=== PATIENT | female | born 1965 | race Caucasian/White ===

== ENCOUNTER 2025-01-26 12:55 | Inpatient (IN) ==
[2025-01-26 13:06] VITALS: BMI 46.7
[2025-01-26] MEDS: ZOFRAN INJ 4 MG VIAL IVP ONE ×2 (14:09→19:24)
[2025-01-26] MEDS: NS 1,000 ML IV 1,000 ML IV ONE (14:10)
[2025-01-26] MEDS: OFIRMEV IV 1000 MG VIAL 1,000 MG/100 ML VIAL IV PRN (14:11)
--- NOTE | 2025-01-26 15:02 | ED.ABDFE ---
HPI Time Seen Time Seen by Provider: 01/26/25 14:45 PCP Primary Care Physician: Dr. Crow Complaint Chief Complaint:: Patient states that starting Sunday night she started having left sided lower back pain that went into her left lower abdomen. She states that yesterday she started throwing up and states that she has ran a fever of 103.6. COVID-19 Coronavirus risk:travel/contact w/high risk person: Yes Has patient experienced Coronavirus symptoms: Yes Coronavirus symptoms experienced: Fever Source History Provided: Patient Mode of arrival Mode of Arrival: Ambulatory Timing Onset of Chief Complaint: 01/23/25 PMH PMH Past Medical History: Yes Past Medical History: GERD and Hypothyroidism Past Surgical History: Yes Surgical History: , Cholecystectomy, Ortho Surgery and Other Past Surgical History Comment: Elbow, foot, x2 carpel tunnel Family History History of Family Medical Conditions: Yes Family Medical History: Diabetes Mellitus, [place], Coronary Artery Disease and Hypertension Social History Does patient currently use any type of tobacco product: No Have you used tobacco products in the last 12 months: No Type of Tobacco Use: None Does any household member use tobacco: No Alcohol Use: None Do you use any recreational Drugs:: No Lives With: Family Lives Where: Home Travel Risk Coronavirus risk:travel/contact w/high risk person: Yes Has patient experienced Coronavirus symptoms: Yes Coronavirus symptoms experienced: Fever Infectious screening In the last 2 months have you had wt loss of >10#?: NO Have you had fever, night sweats or hemotysis?: No Have you traveled outside the country in the last 6 months?: No Isolation: Droplet PE Vital Signs Vitals: Vital Signs Temperature 99.8 F Temperature 102.9 F Temperature 99.6 F Pulse Rate 80 Pulse Rate 79 Pulse Rate 78 Pulse Rate 79 Pulse Rate 80 Pulse Rate 78 Pulse Rate 79 Pulse Rate 81 Pulse Rate 79 Pulse Rate 81 Pulse Rate 83 Pulse Rate 83 Pulse Rate 87 Pulse Rate 92 Pulse Rate 92 Pulse Rate 94 Pulse Rate 101 Pulse Rate 104 Pulse Rate 105 Pulse Rate 112 Pulse Rate 113 Pulse Rate 114 Respiratory Rate 20 Respiratory Rate 20 Respiratory Rate 18 Respiratory Rate 19 Respiratory Rate 19 Respiratory Rate 18 Respiratory Rate 18 Respiratory Rate 19 Respiratory Rate 19 Respiratory Rate 19 Respiratory Rate 21 Respiratory Rate 21 Respiratory Rate 24 Respiratory Rate 16 Respiratory Rate 23 Respiratory Rate 26 Respiratory Rate 28 Respiratory Rate 18 Respiratory Rate 27 Respiratory Rate 22 Respiratory Rate 24 Respiratory Rate 18 Blood Pressure 126/83 Blood Pressure 120/78 Blood Pressure 126/76 Blood Pressure 126/76 Blood Pressure 99/70 Blood Pressure 104/77 Blood Pressure 112/62 Blood Pressure 114/60 Blood Pressure 112/64 Blood Pressure 122/71 Blood Pressure 137/75 Blood Pressure 134/82 O2 Sat by Pulse Oximetry 98 O2 Sat by Pulse Oximetry 96 O2 Sat by Pulse Oximetry 93 O2 Sat by Pulse Oximetry 93 O2 Sat by Pulse Oximetry 93 O2 Sat by Pulse Oximetry 95 O2 Sat by Pulse Oximetry 93 O2 Sat by Pulse Oximetry 97 O2 Sat by Pulse Oximetry 96 O2 Sat by Pulse Oximetry 97 O2 Sat by Pulse Oximetry 97 O2 Sat by Pulse Oximetry 97 O2 Sat by Pulse Oximetry 96 O2 Sat by Pulse Oximetry 96 O2 Sat by Pulse Oximetry 95 O2 Sat by Pulse Oximetry 93 O2 Sat by Pulse Oximetry 93 O2 Sat by Pulse Oximetry 95 O2 Sat by Pulse Oximetry 94 O2 Sat by Pulse Oximetry 95 O2 Sat by Pulse Oximetry 95 ROR Labs Reviewed 01/26/25 13:58 01/26/25 13:58 Laboratory: WBC 7.5 X10^3/uL (3.6-10.0) 01/26/25 13:58 RBC 4.17 X10^6/uL (3.5-5.4) 01/26/25 13:58 Hgb 14.3 g/dL (12.0-16.0) 01/26/25 13:58 Hct 41.2 % (36.0-47.0) 01/26/25 13:58 MCV 98.7 fL (80.0-100.0) 01/26/25 13:58 MCH 34.2 pg (27.0-34.0) H 01/26/25 13:58 MCHC 34.6 g/dL (33.0-35.0) 01/26/25 13:58 RDW 14.3 % (11.6-16.5) 01/26/25 13:58 Plt Count 216 X10^3/uL (150.0-450.0) 01/26/25 13:58 MPV 8.1 fL (7.4-11.0) 01/26/25 13:58 Neut % (Auto) 73.8 % (42.0-75.0) 01/26/25 13:58 Lymph % (Auto) 16.5 % (21.0-51.0) L 01/26/25 13:58 [place] % (Auto) 8.6 % (0.0-13.0) 01/26/25 13:58 Eos % (Auto) 0.1 % (0.9-2.9) L 01/26/25 13:58 Baso % (Auto) 1.0 % (0.2-1.0) 01/26/25 13:58 Neut # (Auto) 5.5 x10^3/uL (2.2-4.8) H 01/26/25 13:58 Lymph # (Auto) 1.2 X10^3/uL (1.3-2.9) L 01/26/25 13:58 [place] # (Auto) 0.6 x10^3/uL (0.3-0.8) 01/26/25 13:58 Eos # (Auto) 0.0 x10^3/uL (0.0-0.2) 01/26/25 13:58 Baso # (Auto) 0.1 X10^3/uL (0.0-0.1) 01/26/25 13:58 Absolute Nucleated RBC 0.2 /100WBC 01/26/25 13:58 Sodium 135 mmol/L (136-145) L 01/26/25 13:58 Corrected Sodium TNP 01/26/25 13:58 Potassium 3.8 mmol/L (3.5-5.1) 01/26/25 13:58 Chloride 98 mmol/L (98-107) 01/26/25 13:58 Carbon Dioxide 26.6 mmol/L (21-32) 01/26/25 13:58 BUN 12 mg/dL (7-18) 01/26/25 13:58 Creatinine 1.15 mg/dL (0.55-1.02) H 01/26/25 13:58 Est GFR (MDRD) Af Amer > 60 (>60) 01/26/25 13:58 Est GFR (MDRD) Non-Af 52 (>60) L 01/26/25 13:58 Glucose 101 mg/dL (65-99) H 01/26/25 13:58 Lactic Acid 0.4 mmol/L (0.4-2.0) 01/26/25 16:48 Calcium 9.4 mg/dL (8.5-10.1) 01/26/25 13:58 Corrected Calcium 10.0 mg/dL (8.5-10.1) 01/26/25 13:58 Total Bilirubin 0.60 mg/dL (0.2-1.0) 01/26/25 13:58 AST 20 Units/L (15-37) 01/26/25 13:58 ALT 19 Units/L (12-78) 01/26/25 13:58 Alkaline Phosphatase 77 Units/L (46-116) 01/26/25 13:58 Total Protein 7.9 g/dL (6.4-8.2) 01/26/25 13:58 Albumin 3.2 g/dL (3.4-5.0) L 01/26/25 13:58 Globulin 4.7 g/dL (2.5-4.5) H 01/26/25 13:58 Albumin/Globulin Ratio 0.7 Ratio (1.1-2.1) L 01/26/25 13:58 Specimen Type Clean catch urine 01/26/25 15:06 Urine Color Yellow (YELLOW) 01/26/25 15:06 Urine Appearance Cloudy (CLEAR) 01/26/25 15:06 Urine pH 6.0 (5.0 - 8.0) 01/26/25 15:06 Ur Specific [place] 1.015 (1.000-1.030) 01/26/25 15:06 Urine Protein 3+ (NEGATIVE) 01/26/25 15:06 Urine Glucose (UA) Negative (NEGATIVE) 01/26/25 15:06 Urine Ketones 2+ (NEGATIVE) 01/26/25 15:06 Urine Blood 4+ (NEGATIVE) 01/26/25 15:06 Urine Nitrite Positive (NEGATIVE) 01/26/25 15:06 Urine Bilirubin Negative (NEGATIVE) 01/26/25 15:06 Urine Urobilinogen Normal (NORMAL) 01/26/25 15:06 Ur Leukocyte Esterase 3+ (NEGATIVE) 01/26/25 15:06 Urine RBC Tntc /HPF (0-3) A 01/26/25 15:06 Urine WBC Tntc /HPF (0-5) A 01/26/25 15:06 Ur Squamous Epith Cells Rare /HPF (NEGATIVE) 01/26/25 15:06 Urine Bacteria 2+ /HPF (NEGATIVE) 01/26/25 15:06 Ur Culture Indicated? Yes/culture set up 01/26/25 15:06 SARS-CoV-2 (PCR) Negative (NEGATIVE) 01/26/25 15:05 Influenza Type A (PCR) Negative (NEGATIVE) 01/26/25 15:05 Influenza Type B (PCR) Negative (NEGATIVE) 01/26/25 15:05 RSV (PCR) Negative (NEGATIVE) 01/26/25 15:05 Opioid Opioid Risk Tool Age (Bc box if 16-45): No History of Preadolescent Sexual Abuse: No Total: 0 Total Score Risk Category: Low Risk Copyright: Luisito JACOSB predicting aberrant behaviors Discharge Plan Diagnosis Discharge Problem: Acute pyelonephritis, Lower back pain, Kidney stones Discharge Plan Patient Disposition: 09 ADMITTED INPATIENT Condition: Stable Orders to Discharge Patient Discharge Orders: Transfer (Routine); Ordered 01/26/25 Ordered By: KARLA FABIAN
[2025-01-26 15:33] LABS: BASOPHILS # (AUTO) 0.1 X10^3/uL (0.0-0.1); EOSINOPHILS % (AUTO) 0.1 % (0.9-2.9); HEMATOCRIT 41.2 % (36.0-47.0); HEMOGLOBIN 14.3 g/dL (12.0-16.0); LYMPHOCYTES # (AUTO) 1.2 X10^3/uL (1.3-2.9); LYMPHOCYTES % (AUTO) 16.5 % (21.0-51.0); MEAN CORPUSCULAR HEMOGLOBIN 34.2 pg (27.0-34.0); MEAN CORPUSCULAR HGB CONC 34.6 g/dL (33.0-35.0); MEAN CORPUSCULAR VOLUME 98.7 fL (80.0-100.0); MEAN PLATELET VOLUME 8.1 fL (7.4-11.0); MONOCYTES # (AUTO) 0.6 x10^3/uL (0.3-0.8); MONOCYTES % (AUTO) 8.6 % (0.0-13.0); NEUTROPHILS # (AUTO) 5.5 x10^3/uL (2.2-4.8); NEUTROPHILS % (AUTO) 73.8 % (42.0-75.0); PLATELET COUNT 216 X10^3/uL (150.0-450.0); RED BLOOD COUNT 4.17 X10^6/uL (3.5-5.4); RED CELL DISTRIBUTION WIDTH 14.3 % (11.6-16.5); WHITE BLOOD COUNT 7.5 X10^3/uL (3.6-10.0)
[2025-01-26 15:47] LABS: BILIRUBIN,URINE NEGATIVE (NEGATIVE); BLOOD/HEMOGLOBIN,URINE 4+ (NEGATIVE); GLUCOSE, URINE NEGATIVE (NEGATIVE); KETONES,URINE 2+ (NEGATIVE); LEUKOCYTE ESTERASE ,URINE 3+ (NEGATIVE); NITRITES,URINE POSITIVE (NEGATIVE); PROTEIN,URINE 3+ (NEGATIVE); UROBILINOGEN,URINE NORMAL (NORMAL)
[2025-01-26 15:49] LABS: ALANINE AMINOTRANSFERASE 19 Units/L (12-78); ALBUMIN 3.2 g/dL (3.4-5.0); ALKALINE PHOSPHATASE 77 Units/L (46-116); ASPARTATE AMINO TRANSFERASE 20 Units/L (15-37); BLOOD UREA NITROGEN 12 mg/dL (7-18); CALCIUM 9.4 mg/dL (8.5-10.1); CARBON DIOXIDE 26.6 mmol/L (21-32); CHLORIDE 98 mmol/L (98-107); CREATININE 1.15 mg/dL (0.55-1.02); GLUCOSE 101 mg/dL (65-99); POTASSIUM 3.8 mmol/L (3.5-5.1); SODIUM 135 mmol/L (136-145); TOTAL PROTEIN 7.9 g/dL (6.4-8.2); eGFR NON BLACK RACES 52 (>60)
[2025-01-26 15:49] LABS: APPEARANCE,URINE CLOUDY (CLEAR); COLOR,URINE YELLOW (YELLOW)
[2025-01-26 15:54] LABS: BACTERIA,URINE 2+ /HPF (NEGATIVE); RBC,URINE TNTC /HPF (0-3); SQUAMOUS EPITHELIAL CELL,UR RARE /HPF (NEGATIVE)
[2025-01-26] MEDS: ROCEPHIN VIAL 1 GRAM IV ONE (16:31)
--- NOTE | 2025-01-26 16:51 | CT ---
EXAM:CT ABDOMEN AND PELVIS WITHOUT CONTRASTHISTORY:ABD PAIN, FEVER; C-SECT, GB, ORTHOCOMPARISON:None.TECHNIQUE:Axial CT images were obtained through the abdomen and pelvis without contrast. Coronal reformatted images were included.All CT scans at this facility use dose modulation, iterative reconstruction, and/or weight based dosing when appropriate to reduce radiation dose to as low as reasonably achievable.FINDINGS:Please note that without the use of intravenous contrast, evaluation of organ parenchyma is limited.LOWER THORAX: Small hiatal hernia. Lung bases are clear.ABDOMEN:LIVER: NormalGALLBLADDER: Surgically absent.SPLEEN: NormalPANCREAS: NormalKIDNEYS: Mild bilateral pelviectasis. Left perinephric fat stranding is noted. Thickening of the left renal pelvis and proximal ureter urothelium noted. Findings raise suspicion for possible recently passed left renal stone or urinary tract infection. Urinary bladder wall thickening suggests possible cystitis.ADRENAL GLANDS: NormalGI TRACT: Colonic diverticulosis without evidence of diverticulitis. Normal appendix. Postop changes of gastric sleeve surgery.LYMPH NODES: No enlarged nodesVESSELS: NormalPERITONEUM / RETROPERITONEUM: No free gasPELVIS:BLADDER: Bladder wall thickening suggests possible cystitis.GENITALS: NormalBONES: Degenerative changes noted within the lumbar spine. No suspicious lytic or blastic lesions.IMPRESSION:Left renal pelvis and proximal ureteral urothelial thickening noted. Left perinephric fat stranding. Urinary bladder wall thickening. Findings suggests possible recently passed stone or urinary tract infection with possible pyelonephritis. Correlation recommended.Small hiatal hernia.Postoperative changes of gastric sleeve surgery.THIS IS AN ELECTRONICALLY VERIFIED FINAL REPORT01/26/2025 4:47 PM - Electronically signed by Colin Cabrera MD
[2025-01-26] MEDS: MORPHINE SULFATE INJ 4 MG IVP ONE (19:23)
[2025-01-26] MEDS ORDERED: APIXABAN 2.5 MG PO SCH (21:14)
[2025-01-26] MEDS: NS 1,000 ML IV 1,000 ML IV SCH (22:49)
[2025-01-26] MEDS: ELIQUIS PO SCH (22:49)
[2025-01-26] MEDS: PROTONIX INJ 40 MG VIAL IVP SCH (22:49)
[2025-01-27] MEDS: TYLENOL 500 MG TAB EXTRA STRENGTH PO PRN (00:34)
[2025-01-27 05:22] LABS: BASOPHILS # (AUTO) 0.1 X10^3/uL (0.0-0.1); BASOPHILS % (AUTO) 0.9 % (0.2-1.0); EOSINOPHILS % (AUTO) 0.1 % (0.9-2.9); HEMATOCRIT 33.7 % (36.0-47.0); HEMOGLOBIN 11.6 g/dL (12.0-16.0); LYMPHOCYTES % (AUTO) 14.7 % (21.0-51.0); MEAN CORPUSCULAR HEMOGLOBIN 33.9 pg (27.0-34.0); MEAN CORPUSCULAR HGB CONC 34.6 g/dL (33.0-35.0); MEAN CORPUSCULAR VOLUME 98.2 fL (80.0-100.0); MEAN PLATELET VOLUME 7.7 fL (7.4-11.0); MONOCYTES # (AUTO) 0.8 x10^3/uL (0.3-0.8); MONOCYTES % (AUTO) 11.6 % (0.0-13.0); NEUTROPHILS # (AUTO) 4.9 x10^3/uL (2.2-4.8); NEUTROPHILS % (AUTO) 72.7 % (42.0-75.0); PLATELET COUNT 199 X10^3/uL (150.0-450.0); RED BLOOD COUNT 3.43 X10^6/uL (3.5-5.4); RED CELL DISTRIBUTION WIDTH 14.3 % (11.6-16.5); WHITE BLOOD COUNT 6.7 X10^3/uL (3.6-10.0)
[2025-01-27 05:34] LABS: ALANINE AMINOTRANSFERASE 14 Units/L (12-78); ALBUMIN 2.4 g/dL (3.4-5.0); ALKALINE PHOSPHATASE 59 Units/L (46-116); ASPARTATE AMINO TRANSFERASE 16 Units/L (15-37); BLOOD UREA NITROGEN 12 mg/dL (7-18); CALCIUM 8.5 mg/dL (8.5-10.1); CARBON DIOXIDE 25.5 mmol/L (21-32); CHLORIDE 101 mmol/L (98-107); COR CA(FOR HYPOALB) 9.8 mg/dL (8.5-10.1); CREATININE 0.96 mg/dL (0.55-1.02); GLUCOSE 89 mg/dL (65-99); POTASSIUM 3.5 mmol/L (3.5-5.1); SODIUM 137 mmol/L (136-145); TOTAL PROTEIN 6.4 g/dL (6.4-8.2); eGFR NON BLACK RACES > 60 (>60)
[2025-01-27] MEDS ORDERED: CONSULT PHARMACY - POTASSIUM & MAGNESIUM XX SCH (08:00)
[2025-01-27] MEDS ORDERED: ROCEPHIN VIAL 1 GRAM ONE (08:12)
[2025-01-27] MEDS ORDERED: ELIQUIS ONE (08:12)
[2025-01-27] MEDS ORDERED: MILK OF MAGNESIA ONE (08:12)
[2025-01-27] MEDS ORDERED: NS 100 ML IV 100 ML ONE (08:13)
[2025-01-27] MEDS: K-DUR TAB 20 MEQ PO SCH (08:33)
[2025-01-27] MEDS: VISBIOME PROBIOTIC CAP 112.5 B or equivalent PO SCH (08:33)
[2025-01-27] MEDS: ROCEPHIN VIAL 1 GRAM 1 G in NS 100 ML IV 100 ML IV SCH (08:34)
[2025-01-27] MEDS: MILK OF MAGNESIA PO SCH (08:34)
[2025-01-27] MEDS: ZOFRAN INJ 4 MG VIAL IVP PRN (08:56)
[2025-01-27] MEDS ORDERED: PATIENT'S HOME MEDICATION (Omeprazole 40 mg capsule,delayed release(DR/EC)) PO SCH (09:00)
[2025-01-27] MEDS: NORCO 5/325 MG TAB PO PRN (09:39)
--- NOTE | 2025-01-27 11:07 | VAS ---
EXAM:LOWER EXT VENOUS, BILATERALHISTORY:possible blood clots; MALATHI LEG PAIN, PREVIOUS DVTCOMPARISON:None available.TECHNIQUE:Multiple whiting scale and color flow Doppler images of the deep venous system were obtained of the right and left lower extremity.FINDINGS:The deep venous system of the right and left lower extremities were evaluated from the level of the common femoral vein through the popliteal vein. Normal color flow and augmentation can be observed. In addition, normal compression is seen throughout the deep venous system.IMPRESSION:Negative for DVT.THIS IS AN ELECTRONICALLY VERIFIED FINAL REPORT01/27/2025 11:04 AM - Electronically signed by Oswald Damian MD
[2025-01-27] MEDS: MORPHINE SULFATE INJ 4 MG IVP PRN (12:30)
--- NOTE | 2025-01-27 15:37 | DR.H&P ---
H&P History & Physical for Day of: H&P Date: 01/26/25 Chief Complaint Chief Complaint: ABDOMINAL PAIN, FEVER History of Present Illness History of Present Illness: Patient states that starting Sunday night she started having left sided lower back pain that went into her left lower abdomen. She states that yesterday she started throwing up and states that she has ran a fever of 103.6. Pt has ct of abd/pelvis in ER. Pt report she had left knee surgery over a year ago and was dx with left lower leg dvt post op and has been on eliquis since. Pt is under the care of [facility] in [place]. Pt admitted for evaluation and treatment of acute illness Past Medical History Past Medical History: GERD and Hypothyroidism Past Surgical History Surgical History: , Cholecystectomy and Ortho Surgery Family History Family Medical History: Diabetes Mellitus, [place], Coronary Artery Disease, Heart Failure, Sudden Cardiac and Hypertension Social History Does patient currently use any type of tobacco product: No Have you used tobacco products in the last 12 months: No Type of Tobacco Use: None Does any household member use tobacco: No Alcohol Use: None Drug Use: None Medications Home Medications: Home Medications Medication Instructions Recorded Confirmed Type apixaban 2.5 mg tablet (Eliquis) 2.5 mg PO BID 12/19/24 01/26/25 History cyanocobalamin (vitamin B-12) 1,000 mcg IM QMONTH 12/19/24 01/26/25 History 1,000 mcg/mL injection solution omeprazole 40 mg capsule,delayed 40 mg PO DAILY 12/19/24 01/26/25 History release oxycodone-acetaminophen 5 mg-325 1 tab PO TID 12/19/24 01/26/25 History mg tablet Allergies Allergies Allergy/AdvReac Type Severity Reaction Status Date / Time albuterol [From DuoNeb] Allergy Verified 01/26/25 13:52 diphenhydramine Allergy Verified 01/26/25 13:52 [From Benadryl] ipratropium [From DuoNeb] Allergy Verified 01/26/25 13:52 Labs 01/27/25 04:45 01/27/25 04:45 Labs: 01/26/25 15:06 Urine,Clean Catch Urine Culture - Preliminary 01/26/25 15:36 Blood Blood Culture Gram Stain - Final Laboratory WBC 6.7 X10^3/uL (3.6-10.0) 01/27/25 04:45 RBC 3.43 X10^6/uL (3.5-5.4) L 01/27/25 04:45 Hgb 11.6 g/dL (12.0-16.0) L D 01/27/25 04:45 Hct 33.7 % (36.0-47.0) L 01/27/25 04:45 MCV 98.2 fL (80.0-100.0) 01/27/25 04:45 MCH 33.9 pg (27.0-34.0) 01/27/25 04:45 MCHC 34.6 g/dL (33.0-35.0) 01/27/25 04:45 RDW 14.3 % (11.6-16.5) 01/27/25 04:45 Plt Count 199 X10^3/uL (150.0-450.0) 01/27/25 04:45 MPV 7.7 fL (7.4-11.0) 01/27/25 04:45 Neut % (Auto) 72.7 % (42.0-75.0) 01/27/25 04:45 Lymph % (Auto) 14.7 % (21.0-51.0) L 01/27/25 04:45 [place] % (Auto) 11.6 % (0.0-13.0) 01/27/25 04:45 Eos % (Auto) 0.1 % (0.9-2.9) L 01/27/25 04:45 Baso % (Auto) 0.9 % (0.2-1.0) 01/27/25 04:45 Neut # (Auto) 4.9 x10^3/uL (2.2-4.8) H 01/27/25 04:45 Lymph # (Auto) 1.0 X10^3/uL (1.3-2.9) L 01/27/25 04:45 [place] # (Auto) 0.8 x10^3/uL (0.3-0.8) 01/27/25 04:45 Eos # (Auto) 0.0 x10^3/uL (0.0-0.2) 01/27/25 04:45 Baso # (Auto) 0.1 X10^3/uL (0.0-0.1) 01/27/25 04:45 Absolute Nucleated RBC 0.1 /100WBC 01/27/25 04:45 Sodium 137 mmol/L (136-145) 01/27/25 04:45 Corrected Sodium TNP 01/27/25 04:45 Potassium 3.5 mmol/L (3.5-5.1) 01/27/25 04:45 Chloride 101 mmol/L (98-107) 01/27/25 04:45 Carbon Dioxide 25.5 mmol/L (21-32) 01/27/25 04:45 BUN 12 mg/dL (7-18) 01/27/25 04:45 Creatinine 0.96 mg/dL (0.55-1.02) 01/27/25 04:45 Est GFR (MDRD) Af Amer > 60 (>60) 01/27/25 04:45 Est GFR (MDRD) Non-Af > 60 (>60) 01/27/25 04:45 Glucose 89 mg/dL (65-99) 01/27/25 04:45 Lactic Acid 0.4 mmol/L (0.4-2.0) 01/26/25 16:48 Calcium 8.5 mg/dL (8.5-10.1) 01/27/25 04:45 Corrected Calcium 9.8 mg/dL (8.5-10.1) 01/27/25 04:45 Total Bilirubin 0.40 mg/dL (0.2-1.0) 01/27/25 04:45 AST 16 Units/L (15-37) 01/27/25 04:45 ALT 14 Units/L (12-78) 01/27/25 04:45 Alkaline Phosphatase 59 Units/L (46-116) 01/27/25 04:45 Total Protein 6.4 g/dL (6.4-8.2) 01/27/25 04:45 Albumin 2.4 g/dL (3.4-5.0) L 01/27/25 04:45 Globulin 4.0 g/dL (2.5-4.5) 01/27/25 04:45 Albumin/Globulin Ratio 0.6 Ratio (1.1-2.1) L 01/27/25 04:45 Specimen Type Clean catch urine 01/26/25 15:06 Urine Color Yellow (YELLOW) 01/26/25 15:06 Urine Appearance Cloudy (CLEAR) 01/26/25 15:06 Urine pH 6.0 (5.0 - 8.0) 01/26/25 15:06 Ur Specific [place] 1.015 (1.000-1.030) 01/26/25 15:06 Urine Protein 3+ (NEGATIVE) 01/26/25 15:06 Urine Glucose (UA) Negative (NEGATIVE) 01/26/25 15:06 Urine Ketones 2+ (NEGATIVE) 01/26/25 15:06 Urine Blood 4+ (NEGATIVE) 01/26/25 15:06 Urine Nitrite Positive (NEGATIVE) 01/26/25 15:06 Urine Bilirubin Negative (NEGATIVE) 01/26/25 15:06 Urine Urobilinogen Normal (NORMAL) 01/26/25 15:06 Ur Leukocyte Esterase 3+ (NEGATIVE) 01/26/25 15:06 Urine RBC Tntc /HPF (0-3) A 01/26/25 15:06 Urine WBC Tntc /HPF (0-5) A 01/26/25 15:06 Ur Squamous Epith Cells Rare /HPF (NEGATIVE) 01/26/25 15:06 Urine Bacteria 2+ /HPF (NEGATIVE) 01/26/25 15:06 Ur Culture Indicated? Yes/culture set up 01/26/25 15:06 SARS-CoV-2 (PCR) Negative (NEGATIVE) 01/26/25 15:05 Influenza Type A (PCR) Negative (NEGATIVE) 01/26/25 15:05 Influenza Type B (PCR) Negative (NEGATIVE) 01/26/25 15:05 RSV (PCR) Negative (NEGATIVE) 01/26/25 15:05 Review of Systems Constitutional: Fever, Chills and Weakness Eyes: No Symptoms Reported ENT: No Symptoms Reported Respiratory: No Symptoms Reported Cardiovascular: Palpitations Gastrointestinal: Abdominal Pain Genitourinary: Dysuria and Hematuria Musculoskeletal: Back Pain Skin: No Symptoms Reported Neurological: No Symptoms Reported Physical Exam Vital Signs: Vital Signs Temperature 98.7 F Temperature 98.7 F Pulse Rate [Right Brachial] 82 Pulse Rate [Right Brachial] 96 Respiratory Rate 20 Respiratory Rate 20 Respiratory Rate 20 Respiratory Rate 21 Respiratory Rate 21 Respiratory Rate 21 Blood Pressure [Right Arm] 118/67 Blood Pressure [Right Arm] 134/98 O2 Sat by Pulse Oximetry 97 O2 Sat by Pulse Oximetry 99 Oriented: Normal Eyes: Normal Ear: Normal Nose: Normal Throat: Normal Respiratory: RLL Diminished and LLL Diminished Cardiovascular: Normal Auscultation: Bowel Sounds: Normal Palpation: Normal Tenderness: Diffuse and Suprapubic Skin: Normal Musculoskeletal: Back:Lumbar Psychiatric: Normal Mood Description: Calm Affect: Anxious Speech Pattern: Clear and Appropriate Assessment/Plan (1) Acute pyelonephritis: Status: Acute Plan: admit, iv atbx, pain control iv hydration, bc and uc on admission verify home medications (2) UTI (urinary tract infection): Qualifiers: Qualified Code(s): N39.0 - Urinary tract infection, site not specified; R31.9 - Hematuria, unspecified Status: Acute (3) IBD (inflammatory bowel disease): Status: Acute
[2025-01-27] MEDS: COLACE CAP 100 MG PO SCH (21:26)
[2025-01-28 06:31] LABS: BASOPHILS # (AUTO) 0.1 X10^3/uL (0.0-0.1); EOSINOPHILS % (AUTO) 0.3 % (0.9-2.9); HEMATOCRIT 31.3 % (36.0-47.0); HEMOGLOBIN 10.8 g/dL (12.0-16.0); LYMPHOCYTES # (AUTO) 0.8 X10^3/uL (1.3-2.9); LYMPHOCYTES % (AUTO) 14.8 % (21.0-51.0); MEAN CORPUSCULAR HEMOGLOBIN 34.3 pg (27.0-34.0); MEAN CORPUSCULAR HGB CONC 34.6 g/dL (33.0-35.0); MEAN CORPUSCULAR VOLUME 98.9 fL (80.0-100.0); MEAN PLATELET VOLUME 7.8 fL (7.4-11.0); MONOCYTES # (AUTO) 0.6 x10^3/uL (0.3-0.8); MONOCYTES % (AUTO) 11.2 % (0.0-13.0); NEUTROPHILS # (AUTO) 3.7 x10^3/uL (2.2-4.8); NEUTROPHILS % (AUTO) 72.7 % (42.0-75.0); PLATELET COUNT 200 X10^3/uL (150.0-450.0); RED BLOOD COUNT 3.17 X10^6/uL (3.5-5.4); RED CELL DISTRIBUTION WIDTH 14.2 % (11.6-16.5); WHITE BLOOD COUNT 5.1 X10^3/uL (3.6-10.0)
[2025-01-28 06:40] LABS: ALANINE AMINOTRANSFERASE 20 Units/L (12-78); ALBUMIN 2.2 g/dL (3.4-5.0); ALKALINE PHOSPHATASE 89 Units/L (46-116); ASPARTATE AMINO TRANSFERASE 35 Units/L (15-37); BLOOD UREA NITROGEN 9 mg/dL (7-18); CALCIUM 8.4 mg/dL (8.5-10.1); CARBON DIOXIDE 25.7 mmol/L (21-32); CHLORIDE 104 mmol/L (98-107); COR CA(FOR HYPOALB) 9.8 mg/dL (8.5-10.1); CREATININE 0.91 mg/dL (0.55-1.02); GLUCOSE 91 mg/dL (65-99); MAGNESIUM 2.2 mg/dL (2.0-2.9); POTASSIUM 4.1 mmol/L (3.5-5.1); SODIUM 137 mmol/L (136-145); TOTAL PROTEIN 6.1 g/dL (6.4-8.2); eGFR NON BLACK RACES > 60 (>60)
[2025-01-28] MEDS: LASIX IVP SCH (14:14)
[2025-01-28] MEDS: LEVAQUIN PREMIX IV 750 MG 750 MG/150 ML BAG IV SCH (14:14)
[2025-01-28] MEDS: NS 1,000 ML IV 1,000 ML IV SCH (14:19)
[2025-01-28] MEDS: RESTORIL CAP 15 MG PO PRN (21:47)
[2025-01-28] MEDS: PEPCID TAB 20 MG PO SCH (21:47)
[2025-01-29] MEDS: PriLOSEC PO ONE (07:22)
[2025-01-29] MEDS: PROTONIX INJ 40 MG VIAL ONE (07:22)
[2025-01-29] MEDS: K-DUR TAB 20 MEQ PO ONE (07:22)
[2025-01-29] MEDS: VISBIOME PROBIOTIC CAP 112.5 B or equivalent ONE (07:23)
--- NOTE | 2025-01-29 07:33 | RAD ---
EXAM: Portable chest HISTORY: Shortness of breath COMPARISON: 12/19/2023 FINDINGS: Heart size is normal. [place]ana are normal. Lungs are well inflated and free of acute infiltrates. No p leural effusions are identified. No pneumothorax identified. Bony thorax is unremarkable. IMPRESSION: No significant abnormality identified THIS IS AN ELECTRONICALLY VERIFIED FINAL REPORT 01/29/2025 7:30 AM - Electronically signed by Salvatore Alvarez MD
[2025-01-29 09:27] LABS: ALANINE AMINOTRANSFERASE 20 Units/L (12-78); ALBUMIN 2.2 g/dL (3.4-5.0); ALKALINE PHOSPHATASE 79 Units/L (46-116); ASPARTATE AMINO TRANSFERASE 22 Units/L (15-37); BLOOD UREA NITROGEN 5 mg/dL (7-18); CALCIUM 8.7 mg/dL (8.5-10.1); CARBON DIOXIDE 28.3 mmol/L (21-32); CHLORIDE 106 mmol/L (98-107); COR CA(FOR HYPOALB) 10.1 mg/dL (8.5-10.1); CREATININE 0.78 mg/dL (0.55-1.02); GLUCOSE 103 mg/dL (65-99); POTASSIUM 3.7 mmol/L (3.5-5.1); SODIUM 140 mmol/L (136-145); TOTAL PROTEIN 6.2 g/dL (6.4-8.2); eGFR NON BLACK RACES > 60 (>60)
[2025-01-29 09:30] LABS: BASOPHILS % (AUTO) 0.9 % (0.2-1.0); EOSINOPHILS % (AUTO) 1.3 % (0.9-2.9); HEMATOCRIT 32.2 % (36.0-47.0); HEMOGLOBIN 11.1 g/dL (12.0-16.0); LYMPHOCYTES # (AUTO) 0.9 X10^3/uL (1.3-2.9); LYMPHOCYTES % (AUTO) 27.3 % (21.0-51.0); MEAN CORPUSCULAR HEMOGLOBIN 33.9 pg (27.0-34.0); MEAN CORPUSCULAR HGB CONC 34.7 g/dL (33.0-35.0); MEAN CORPUSCULAR VOLUME 97.8 fL (80.0-100.0); MEAN PLATELET VOLUME 7.5 fL (7.4-11.0); MONOCYTES # (AUTO) 0.6 x10^3/uL (0.3-0.8); MONOCYTES % (AUTO) 16.5 % (0.0-13.0); NEUTROPHILS # (AUTO) 1.8 x10^3/uL (2.2-4.8); PLATELET COUNT 216 X10^3/uL (150.0-450.0); RED BLOOD COUNT 3.29 X10^6/uL (3.5-5.4); RED CELL DISTRIBUTION WIDTH 14.2 % (11.6-16.5); WHITE BLOOD COUNT 3.4 X10^3/uL (3.6-10.0)
[2025-01-29 09:44] LABS: BAND NEUTROPHILS % 12 % (0-10); BASOPHILS % (MANUAL) 1 % (0-1)
[2025-01-29 09:45] LABS: PLATELET MORPHOLOGY COMMENT NORMAL (NORMAL); STOMATOCYTES SLIGHT
[2025-01-29] MEDS: PEPCID 20 MG VIAL IVP ONE (13:33)
--- NOTE | 2025-01-29 18:23 | PCM.PROG ---
Progress Note Progress Note for Day of Date of Exam: 01/29/25 Subjective Subjective: The patient is a 59-year-old white female admitted with pyelonephritis from the ER. She was started on Rocephin. Her blood culture showed gram negative rods. Also, the patients urine culture showed gram negative rods. We did get a sensitivity back on the urine and it is greater than 100,000 gram negative rods, positive for E. coli. on Levaquin 750 mg IV daily. Past Medical Family Social History Allergies: Allergies albuterol [From DuoNeb] Allergy (Verified 01/26/25 13:52) diphenhydramine [From Benadryl] Allergy (Verified 01/26/25 13:52) ipratropium [From DuoNeb] Allergy (Verified 01/26/25 13:52) Vital Signs and I&O's Vital Signs: Vital Signs Temperature 97.2 F Temperature 97.5 F Pulse Rate [Right Brachial] 68 Pulse Rate [Right Brachial] 67 Respiratory Rate 20 Respiratory Rate 19 Respiratory Rate 20 Respiratory Rate 19 Blood Pressure [Right Arm] 125/75 Blood Pressure [Right Arm] 118/81 O2 Sat by Pulse Oximetry 97 O2 Sat by Pulse Oximetry 96 Intake and Output: Intake & Output 01/27/25 01/28/25 01/29/25 01/30/25 11:59 11:59 11:59 11:59 Intake Total 1622 / 1622 3244 / 3244 3995 / 3995 1511 / 1511 Balance 1622 / 1622 3244 / 3244 3995 / 3995 1511 / 1511 Physical Exam Oriented: Normal Eyes: Normal Ear: Normal Nose: Normal Throat: Normal Respiratory: Diminished Cardiovascular: Normal Auscultation: Bowel Sounds: Normal Tenderness: Normal Skin: Normal Musculoskeletal: Back:Lumbar Psychiatric: Normal Mood Description: Calm Affect: Anxious Speech Pattern: Clear and Appropriate Laboratory and Diagnostics 01/29/25 08:51 01/29/25 08:51 Labs: 01/26/25 15:36 Blood Blood Culture Gram Stain - Final 01/26/25 15:36 Blood Blood Culture - Final Escherichia Coli 01/26/25 15:24 Blood Blood Culture Gram Stain - Final 01/26/25 15:24 Blood Blood Culture - Preliminary 01/26/25 15:06 Urine,Clean Catch Urine Culture - Final Escherichia Coli Laboratory WBC 3.4 X10^3/uL (3.6-10.0) L 01/29/25 08:51 RBC 3.29 X10^6/uL (3.5-5.4) L 01/29/25 08:51 Hgb 11.1 g/dL (12.0-16.0) L 01/29/25 08:51 Hct 32.2 % (36.0-47.0) L 01/29/25 08:51 MCV 97.8 fL (80.0-100.0) 01/29/25 08:51 MCH 33.9 pg (27.0-34.0) 01/29/25 08:51 MCHC 34.7 g/dL (33.0-35.0) 01/29/25 08:51 RDW 14.2 % (11.6-16.5) 01/29/25 08:51 Plt Count 216 X10^3/uL (150.0-450.0) 01/29/25 08:51 Plt Count Comment Adequate (ADEQUATE) 01/29/25 08:51 MPV 7.5 fL (7.4-11.0) 01/29/25 08:51 Neut % (Auto) 54.0 % (42.0-75.0) 01/29/25 08:51 Lymph % (Auto) 27.3 % (21.0-51.0) 01/29/25 08:51 [place] % (Auto) 16.5 % (0.0-13.0) H 01/29/25 08:51 Eos % (Auto) 1.3 % (0.9-2.9) 01/29/25 08:51 Baso % (Auto) 0.9 % (0.2-1.0) 01/29/25 08:51 Neut # (Auto) 1.8 x10^3/uL (2.2-4.8) L 01/29/25 08:51 Lymph # (Auto) 0.9 X10^3/uL (1.3-2.9) L 01/29/25 08:51 [place] # (Auto) 0.6 x10^3/uL (0.3-0.8) 01/29/25 08:51 Eos # (Auto) 0.0 x10^3/uL (0.0-0.2) 01/29/25 08:51 Baso # (Auto) 0.0 X10^3/uL (0.0-0.1) 01/29/25 08:51 Absolute Nucleated RBC 0.1 /100WBC 01/29/25 08:51 Total Counted 100 01/29/25 08:51 Neutrophils % (Manual) 49 % (39-76) 01/29/25 08:51 Band Neutrophils % 12 % (0-10) H 01/29/25 08:51 Lymphocytes % (Manual) 27 % (13-43) 01/29/25 08:51 Monocytes % (Manual) 10 % (4-9) H 01/29/25 08:51 Eosinophils % (Manual) 1 % (0-6) 01/29/25 08:51 Basophils % (Manual) 1 % (0-1) 01/29/25 08:51 Atypical Lymphocytes Few A 01/29/25 08:51 Plt Morphology Comment Normal (NORMAL) 01/29/25 08:51 RBC Morphology Abnormal (NORMAL) A 01/29/25 08:51 Stomatocytes Slight A 01/29/25 08:51 Sodium 140 mmol/L (136-145) 01/29/25 08:51 Corrected Sodium TNP 01/29/25 08:51 Potassium 3.7 mmol/L (3.5-5.1) 01/29/25 08:51 Chloride 106 mmol/L (98-107) 01/29/25 08:51 Carbon Dioxide 28.3 mmol/L (21-32) 01/29/25 08:51 BUN 5 mg/dL (7-18) L 01/29/25 08:51 Creatinine 0.78 mg/dL (0.55-1.02) 01/29/25 08:51 Est GFR (MDRD) Af Amer > 60 (>60) 01/29/25 08:51 Est GFR (MDRD) Non-Af > 60 (>60) 01/29/25 08:51 Glucose 103 mg/dL (65-99) H 01/29/25 08:51 Lactic Acid 0.4 mmol/L (0.4-2.0) 01/26/25 16:48 Calcium 8.7 mg/dL (8.5-10.1) 01/29/25 08:51 Corrected Calcium 10.1 mg/dL (8.5-10.1) 01/29/25 08:51 Magnesium 2.2 mg/dL (2.0-2.9) 01/28/25 05:52 Total Bilirubin 0.20 mg/dL (0.2-1.0) 01/29/25 08:51 AST 22 Units/L (15-37) 01/29/25 08:51 ALT 20 Units/L (12-78) 01/29/25 08:51 Alkaline Phosphatase 79 Units/L (46-116) 01/29/25 08:51 Total Protein 6.2 g/dL (6.4-8.2) L 01/29/25 08:51 Albumin 2.2 g/dL (3.4-5.0) L 01/29/25 08:51 Globulin 4.0 g/dL (2.5-4.5) 01/29/25 08:51 Albumin/Globulin Ratio 0.6 Ratio (1.1-2.1) L 01/29/25 08:51 Specimen Type Clean catch urine 01/26/25 15:06 Urine Color Yellow (YELLOW) 01/26/25 15:06 Urine Appearance Cloudy (CLEAR) 01/26/25 15:06 Urine pH 6.0 (5.0 - 8.0) 01/26/25 15:06 Ur Specific [place] 1.015 (1.000-1.030) 01/26/25 15:06 Urine Protein 3+ (NEGATIVE) 01/26/25 15:06 Urine Glucose (UA) Negative (NEGATIVE) 01/26/25 15:06 Urine Ketones 2+ (NEGATIVE) 01/26/25 15:06 Urine Blood 4+ (NEGATIVE) 01/26/25 15:06 Urine Nitrite Positive (NEGATIVE) 01/26/25 15:06 Urine Bilirubin Negative (NEGATIVE) 01/26/25 15:06 Urine Urobilinogen Normal (NORMAL) 01/26/25 15:06 Ur Leukocyte Esterase 3+ (NEGATIVE) 01/26/25 15:06 Urine RBC Tntc /HPF (0-3) A 01/26/25 15:06 Urine WBC Tntc /HPF (0-5) A 01/26/25 15:06 Ur Squamous Epith Cells Rare /HPF (NEGATIVE) 01/26/25 15:06 Urine Bacteria 2+ /HPF (NEGATIVE) 01/26/25 15:06 Ur Culture Indicated? Yes/culture set up 01/26/25 15:06 SARS-CoV-2 (PCR) Negative (NEGATIVE) 01/26/25 15:05 Influenza Type A (PCR) Negative (NEGATIVE) 01/26/25 15:05 Influenza Type B (PCR) Negative (NEGATIVE) 01/26/25 15:05 RSV (PCR) Negative (NEGATIVE) 01/26/25 15:05 Plan (1) Acute pyelonephritis: Status: Acute Plan: admit, iv atbx, pain control iv hydration, bc and uc on admission verify home medications (2) UTI (urinary tract infection): Status: Acute Qualifiers: Qualified Code(s): N39.0 - Urinary tract infection, site not specified; R31.9 - Hematuria, unspecified (3) IBD (inflammatory bowel disease): Status: Acute
[2025-01-30 06:13] LABS: BASOPHILS % (AUTO) 1.1 % (0.2-1.0); EOSINOPHILS # (AUTO) 0.1 x10^3/uL (0.0-0.2); HEMOGLOBIN 11.5 g/dL (12.0-16.0); LYMPHOCYTES # (AUTO) 1.2 X10^3/uL (1.3-2.9); LYMPHOCYTES % (AUTO) 34.9 % (21.0-51.0); MEAN CORPUSCULAR HEMOGLOBIN 33.9 pg (27.0-34.0); MEAN CORPUSCULAR HGB CONC 34.9 g/dL (33.0-35.0); MEAN CORPUSCULAR VOLUME 97.2 fL (80.0-100.0); MEAN PLATELET VOLUME 7.4 fL (7.4-11.0); MONOCYTES # (AUTO) 0.5 x10^3/uL (0.3-0.8); MONOCYTES % (AUTO) 13.5 % (0.0-13.0); NEUTROPHILS # (AUTO) 1.7 x10^3/uL (2.2-4.8); NEUTROPHILS % (AUTO) 48.5 % (42.0-75.0); PLATELET COUNT 236 X10^3/uL (150.0-450.0); RED CELL DISTRIBUTION WIDTH 14.3 % (11.6-16.5); WHITE BLOOD COUNT 3.6 X10^3/uL (3.6-10.0)
[2025-01-30 06:25] LABS: ALANINE AMINOTRANSFERASE 18 Units/L (12-78); ALBUMIN 2.2 g/dL (3.4-5.0); ALKALINE PHOSPHATASE 71 Units/L (46-116); ASPARTATE AMINO TRANSFERASE 17 Units/L (15-37); BLOOD UREA NITROGEN 6 mg/dL (7-18); CALCIUM 8.7 mg/dL (8.5-10.1); CARBON DIOXIDE 28.1 mmol/L (21-32); CHLORIDE 109 mmol/L (98-107); COR CA(FOR HYPOALB) 10.1 mg/dL (8.5-10.1); GLUCOSE 87 mg/dL (65-99); MAGNESIUM 2.1 mg/dL (2.0-2.9); POTASSIUM 3.8 mmol/L (3.5-5.1); SODIUM 143 mmol/L (136-145); eGFR NON BLACK RACES > 60 (>60)
[2025-01-30] MEDS: SYNTHROID 175 mcg TAB PO SCH (10:43)
[2025-01-30] MEDS: LEVSIN/MAALOX/LIDOC VISC PO PRN (13:55)
[2025-01-30] MEDS: MAALOX or MYLANTA PO PRN (17:11)
[2025-01-30] MEDS: PriLOSEC PO SCH (20:25)
[2025-01-31 06:42] LABS: BASOPHILS % (AUTO) 1.2 % (0.2-1.0); EOSINOPHILS # (AUTO) 0.1 x10^3/uL (0.0-0.2); EOSINOPHILS % (AUTO) 1.9 % (0.9-2.9); HEMATOCRIT 32.2 % (36.0-47.0); HEMOGLOBIN 11.1 g/dL (12.0-16.0); LYMPHOCYTES # (AUTO) 1.6 X10^3/uL (1.3-2.9); MEAN CORPUSCULAR HEMOGLOBIN 33.7 pg (27.0-34.0); MEAN CORPUSCULAR HGB CONC 34.7 g/dL (33.0-35.0); MEAN CORPUSCULAR VOLUME 97.3 fL (80.0-100.0); MEAN PLATELET VOLUME 7.5 fL (7.4-11.0); MONOCYTES # (AUTO) 0.4 x10^3/uL (0.3-0.8); MONOCYTES % (AUTO) 10.9 % (0.0-13.0); NEUTROPHILS # (AUTO) 1.6 x10^3/uL (2.2-4.8); PLATELET COUNT 240 X10^3/uL (150.0-450.0); RED BLOOD COUNT 3.31 X10^6/uL (3.5-5.4); WHITE BLOOD COUNT 3.6 X10^3/uL (3.6-10.0)
[2025-01-31 06:53] LABS: ALANINE AMINOTRANSFERASE 16 Units/L (12-78); ALBUMIN 2.2 g/dL (3.4-5.0); ALKALINE PHOSPHATASE 66 Units/L (46-116); ASPARTATE AMINO TRANSFERASE 18 Units/L (15-37); BLOOD UREA NITROGEN 5 mg/dL (7-18); CALCIUM 8.6 mg/dL (8.5-10.1); CARBON DIOXIDE 27.8 mmol/L (21-32); CHLORIDE 105 mmol/L (98-107); CREATININE 0.77 mg/dL (0.55-1.02); GLUCOSE 88 mg/dL (65-99); POTASSIUM 3.7 mmol/L (3.5-5.1); SODIUM 140 mmol/L (136-145); TOTAL PROTEIN 5.8 g/dL (6.4-8.2); eGFR NON BLACK RACES > 60 (>60)
[2025-01-31] MEDS ORDERED: CONSULT PHARMACY - POTASSIUM & MAGNESIUM XX SCH (08:00)
[2025-01-31] MEDS: K-DUR TAB 20 MEQ PO SCH (09:19)
[2025-01-31 10:11] VITALS: BP 124/76; PULSE 72; RESP 20; TEMP 97.8; O2SAT 95
[2025-01-31] MEDS ORDERED: ZYVOX TAB 600 MG ONE (11:49)
[2025-01-31] MEDS: ZYVOX TAB 600 MG PO SCH (11:55)
[2025-01-31] MEDS: LEVAQUIN TAB 500 MG ONE (11:57)
[2025-02-25] MEDS ORDERED: VITAMIN B-12 INJ IM SCH (09:00)
== END 2025-01-31 12:30 | disposition home or self-care (01) | DRG 690 ==
LOC: ER 12:55 → MED/SURG 18:41
PROVIDERS: ADMIT Internal Medicine; ATTEND Internal Medicine
DX: Z79.01 Long term (current) use of anticoagulants; E03.8 Other specified hypothyroidism; K21.9 Gastro-esophageal reflux disease without esophagitis; Z86.718 Personal history of other venous thrombosis and embolism; K44.9 Diaphragmatic hernia without obstruction or gangrene; B96.89 Other specified bacterial agents as the cause of diseases classified elsewhere; M54.59 Other low back pain; R06.02 Shortness of breath; N39.0 Urinary tract infection, site not specified; N10 Acute pyelonephritis; R78.81 Bacteremia; E87.1 Hypo-osmolality and hyponatremia; R10.32 Left lower quadrant pain; K52.89 Other specified noninfective gastroenteritis and colitis; B96.29 Other Escherichia coli [E. coli] as the cause of diseases classified elsewhere; R31.9 Hematuria, unspecified; Z03.818 Encounter for observation for suspected exposure to other biological agents ruled out